=== PATIENT | female | born 1985 | race Caucasian/White ===

== ENCOUNTER 2017-10-28 16:50 | Emergency (ER) | payer OTHER ==
[~2017-10-28] VITALS: Ht 170.2 cm; Wt 56.7 kg
[2017-10-28] MEDS ORDERED: NKM (17:12)
[2017-10-28 17:14] VITALS: BP 142/91
--- NOTE | 2017-10-28 17:23 | Emergency Room Report ---
History of Present Illness General Chief Complaint: General Complaint Source: Patient Present Illness HPI 32-year-old female presents to the emergency department complaining of 9 out of 10 in severity epigastric pain that radiates up and across the chest since this morning. Patient reports that she took some aspirin earlier today and had some mild relief however her symptoms return and this prompted her to come to the ER. Patient reports recent febrile illness 2 days ago she denies appreciable cough she states that she was seen earlier today at an urgent care and was prescribed albuterol and antibiotics however patient feels that nothing was done because she doesn't believe that she has URI. Patient reports some nausea she denies vomiting she denies constipation or diarrhea. Patient reports history once in the past of acid reflux but has not had symptoms since. Patient states that her pain is not changed with position. She denies shortness of breath. Denies recent travel or ill contacts. Patient states she has attempted to take Tums with no relief. Patient states on occasion pain also radiated to her left shoulder blade. She denies . Denies CP, Palpitations, LOC, AMS, dizziness, Changes in Vision, Sensation, paresthesias, or a sudden severe headache. Allergies: Coded Allergies: No Known Allergies (Unverified , 10/28/17) Patient History Past Medical History: see triage record Past Surgical History: none Pertinent Family History: none Now: No Immunizations: UTD Reviewed Nursing Documentation: PMH: Agreed; PSxH: Agreed Nursing Documentation-PMH Past Medical History: No Stated History Review of Systems All Other Systems: negative except mentioned in HPI Physical Exam Vital Signs Date Time Temp Pulse Resp B/P (MAP) Pulse Ox O2 Delivery O2 Flow Rate FiO2 10/28/17 17:05 97.9 92 18 142/91 96 Room Air 97.9 Medical Decision Making PA Attestation Dr. Wheat is my supervising Physician whom patient management has been discussed with. Diagnostic Impression: Primary Impression: Nonspecific chest pain Additional Impression: Epigastric pain ER Course 32-year-old female presents to the emergency department complaining of 9 out of 10 in severity epigastric pain that radiates up and across the chest since this morning. Patient reports that she took some aspirin earlier today and had some mild relief however her symptoms return and this prompted her to come to the ER. Patient reports recent febrile illness 2 days ago she denies appreciable cough she states that she was seen earlier today at an urgent care and was prescribed albuterol and antibiotics however patient feels that nothing was done because she doesn't believe that she has URI. Patient reports some nausea she denies vomiting she denies constipation or diarrhea. Patient reports history once in the past of acid reflux but has not had symptoms since. Patient states that her pain is not changed with position. She denies shortness of breath. Denies recent travel or ill contacts. Patient states she has attempted to take Tums with no relief. Patient states on occasion pain also radiated to her left shoulder blade. She denies . Denies CP, Palpitations, LOC, AMS, dizziness, Changes in Vision, Sensation, paresthesias, or a sudden severe headache. Ddx considered but are not limited to GERD, Pneumomediastinum, pericarditis, OK , pneumonia, contusion, costochondritis, PE, ACS, Shoulder strain, Chest wall contusion. aortic dissection. Vital signs: are WNL, pt. is afebrile H&PE are most consistent with [ ] ORDERS: - EKG: NSR no evidence of pericarditis CXR: - Unremarkable ED INTERVENTIONS: - Gi Cocktail -Toradol IM -Prevacid. pt. reports symptoms have improved. -I do not identify an emergent condition at this time. With current presentation , pt. is stable for close outpatient follow up and conservative treatment. D/ w pt. to return promptly to ED with worsening or new symptoms.- Pt. (and or responsible libertarian) verbalizes' understanding and agreement with proposed treatment plan.proposed treatment plan. DISCHARGE: At this time pt. is stable for d/c to home. Will provide printed patient care instructions, and any necessary prescriptions. Care plan and follow up instructions have been discussed with the patient prior to discharge. EKG Diagnostic Results EP Interpretation: Dr. Wheat Rate: normal - 70 bpm Rhythm: NSR ST Segments: no acute changes ASA given to the pt in ED: No PA Scribe Text This Interpretation was scribed by EAGLE Alejandre. Chest X-Ray Diagnostic Results Chest X-Ray Diagnostic Results : Chest X-Ray Ordered: Yes # of Views/Limited/Complete: 1 View Indication: Chest Pain EP Interpretation: Yes PA Xray: Interpretation reviewed, by supervising MD, and agrees with findings. Interpretation: no consolidation, no effusion, no pneumothorax, no acute cardiopulmonary disease Impression: No acute disease Electronically Signed by: Patsy Alejandre PA-C Last Vital Signs Date Time Temp Pulse Resp B/P (MAP) Pulse Ox O2 Delivery O2 Flow Rate FiO2 10/28/17 17:05 97.9 92 18 142/91 96 Room Air 97.9 Disposition: HOME, SELF-CARE Condition: Stable Scripts Lansoprazole* (PREVACID*) 15 Mg Tab.rap.dr 15 MG ORAL DAILY, #14 TAB Prov: Patsy Alejandre 10/28/17 Hydrocodone Bit/Acetaminophen 5-325* (NORCO 5-325*) 1 Each Tablet 1 TAB ORAL Q6H PRN for For Pain, #6 TAB 0 Refills Prov: Patsy Alejandre 10/28/17 Simethicone (Simethicone) 80 Mg Tab.chew 80 MG PO BID, #30 TAB Prov: Patsy Alejandre 10/28/17 Patient Instructions: Nonspecific Chest Pain, [id number] Additional Instructions: Take medications as directed. Follow up with a Primary Care Provider in 3-5 days, For GI Specialist referral. Return sooner to ED if new symptoms occur, or current symptoms become worse. - Please note that this Emergency Department Report was dictated using [employer] worker technology software, occasionally this can lead to erroneous entry secondary to interpretation by the dictation equipment. Patsy Alejandre October 28, 2017 17:23
[2017-10-28] MEDS ORDERED: Lidocaine 2% Visc 15ml soln ORAL ONE (17:45)
[2017-10-28] MEDS ORDERED: Mylanta II UD 30ml ORAL ONE (17:45)
[2017-10-28] MEDS ORDERED: Ketorolac 60mg Inj IM ONE (18:30)
[2017-10-28] MEDS ORDERED: PREVACID15 M2 ORAL (19:02)
[2017-10-28] MEDS ORDERED: NORCO 5-325 TA1 EACH ORAL (19:02)
[2017-10-28] MEDS ORDERED: SIMETHICONE80 M1 PO (19:02)
[2017-10-28 19:14] VITALS: BP 134/84
--- NOTE | 2017-10-29 09:35 | Diagnostic Imaging Report ---
Indication: Chest pain Technique: One view of the chest Comparison: none Findings: Lungs and pleural spaces are clear. Heart size is normal. Impression: No acute process
--- NOTE | 2017-10-29 14:35 | Cardiology Report ---
APPROVED REPORT EKG Measurement Heart [id number] [id number] Normal sinus rhythm Rightward axis Borderline ECG
== END 2017-10-28 19:25 | disposition home or self-care (01) ==
LOC: EMR 17:50
DX: R07.9 Chest pain, unspecified (principal); R10.13 Epigastric pain
CPT/HCPCS: 71045; 93005; 96372; 99284

== ENCOUNTER 2018-02-21 13:21 | Emergency (ER) | payer OTHER ==
[~2018-02-21] VITALS: Ht 170.2 cm; Wt 56.7 kg
[~2018-02-21 13:21] MED LIST: NKM; NORCO 5-325 TA1 EACH ORAL; PREVACID15 M2 ORAL; SIMETHICONE80 M1 PO
[2018-02-21 13:47] VITALS: BP 129/83
[2018-02-21] MEDS ORDERED: PROMETHAZI6.25 MG/1 ORAL (13:57)
[2018-02-21] MEDS ORDERED: ROBAXIN500 MG PO (13:57)
[2018-02-21] MEDS ORDERED: TYLENOL EXTRA500 MG ORAL (13:57)
--- NOTE | 2018-02-21 13:58 | Emergency Room Report ---
History of Present Illness General Chief Complaint: Upper Respiratory Illness Source: Patient Present Illness HPI 32-year-old female patient presents ER complaining of cough and no sickness for the past day. Reports cough with white sputum. Denies hemoptysis. Denies taking control, recent travel or history of cancer. Denies chest pain, shortness of breath. Denies history of heart attack or asthma. also complaining of neck stiffness during this time. Reports pain worse with neck leaning back and [id number] movement. Denies injury or trauma. Reports history of neck symptoms in the past. reports that she came to the ER today because a friend of her stated that any time she has neck stiffness and is feeling sick she should go to the ER. Reports does not like taking medications for relief of symptoms, has not taken any pain medication. declines pain medication. Reports up to date on vaccinations. denies hematuria. denies sore throat. denies recent travel. Denies calf pain. Denies headache, vertigo, or vision changes. Allergies: Coded Allergies: No Known Allergies (Unverified , 10/28/17) Patient History Past Medical History: see triage record Last Menstrual Period: 02/09/2018 Reviewed Nursing Documentation: PMH: Agreed; PSxH: Agreed Nursing Documentation-PMH Past Medical History: No Stated History Hx Cardiac Problems: No Hx Hypertension: No Hx Pacemaker: No Hx Asthma: No Hx COPD: No Hx Diabetes: No Hx Cancer: No Hx Gastrointestinal Problems: Yes History Of Psychiatric Problem: No Hx Neurological Problems: No Hx Cerebrovascular Accident: No Hx Seizures: No Review of Systems All Other Systems: negative except mentioned in HPI Physical Exam Vital Signs Date Time Temp Pulse Resp B/P (MAP) Pulse Ox O2 Delivery O2 Flow Rate FiO2 02/21/18 13:29 98.5 74 16 129/83 100 Room Air 98.4 Sp02 EP Interpretation: reviewed, normal General Appearance: well appearing, no apparent distress, alert, GCS 15, non- toxic Head: normocephalic, atraumatic ENT: hearing grossly normal, normal pharynx, no angioedema, normal voice, TMs + canals normal, uvula midline, moist mucus membranes Neck: full range of motion, no meningismus, no bony tend - no spinous process depression or bony tenderness, tender lateral - left Respiratory: lungs clear, normal breath sounds, no rhonchi, no respiratory distress, no accessory muscle use, no wheezing, speaking full sentences Cardiovascular #1: regular rate, rhythm, no edema Genitourinary: no CVA tenderness Musculoskeletal: back normal, digits/nails normal, gait/station normal, normal range of motion, non-tender, no calf tenderness, Yahaira's Sign negative Neurologic: alert, oriented x3, responsive, motor strength/tone normal, sensory intact, other - negative Brudzinski, negative Kernig Psychiatric: mood/affect normal Skin: no rash Lymphatic: no adenopathy Medical Decision Making PA Attestation Dr. Romero is my supervising Physician whom patient management has been discussed with. Diagnostic Impression: Primary Impression: Neck stiffness Additional Impression: Upper respiratory infection ER Course Pt. presents to the ED c/o cough and neck stiffness. Ddx considered but are not limited to fracture, sprain, strain, contusion, dislocation, URI, sinusitis, otitis media, pharyngitis. Negative Kernig, negative Brudzinski, low suspicion for meningitis. Patient afebrile, nontoxic appearing. Does not require labs at this time. no tachycardia, no calf swelling or pain, negative Homans sign, no periods of immobilization, no hemoptysis, does not take control medication, low suspicion for PE per Well's criteria. Vital signs: are WNL, pt. is afebrile ER COURSE patient declined pain medication. lungs clear to auscultation, no wheezes rhonchi Rayl, patient afebrile, low suspicion for pneumonia, does not require chest x-ray. nonerythematous TMs bilaterally, no pain with ear pulling, no signs of otitis externa or media. likely viral etiology of symptoms, provide with cough medication. Advised to drink plenty of fluids and symptomatic treatment. Denies recent injury or trauma, full range of motion, no bony depression or spinous process tenderness, low suspicion for fracture, does not require x-rays at this time. mild tenderness to palpation over left lateral neck, likely muscular pain, will provide muscle relaxant. Patient instructed on RICE method: rest, ice, compression, elevation. Patient instructed on rest, ice and heat. Contact information for orthopedic urgent care provided, follow-up with urgent care if unable to followup with primary care provider and get referral to graphics production specialist. Followup with primary care provider. Discuss referral to ortho/pain management/ PT as needed. Discuss further imaging with MRI/CT as needed. DISCHARGE: -Rx provided for Tylenol for pain - Rx provided for promethazine for cough symptoms -Rx provided for Methocarbamol. SE drowsiness, do not drink, drive, or operate heavy machinery while using. At this time pt. is stable for d/c to home. Patient is resting comfortably, in no acute distress, nontoxic appearing, talking without difficulty. Will provide printed patient care instructions, and any necessary prescriptions. Patient instructed to follow with primary care provider in 3 - 5 days and to request further follow-up as needed. Care plan and follow up instructions have been discussed with the patient prior to discharge. Take medications as directed. Patient questions asked and answered. Patient reports understanding and agreement to treatment plan. ER precautions given, patient instructed to return to ER immediately for any new or worsening of symptoms. - Please note that this Emergency Department Report was dictated using [employer] Power[employer]bed owner operator technology software, occasionally this can lead to erroneous entry secondary to interpretation by the dictation equipment. Last Vital Signs Date Time Temp Pulse Resp B/P (MAP) Pulse Ox O2 Delivery O2 Flow Rate FiO2 02/21/18 13:47 74 16 Room Air 02/21/18 13:47 98.4 129/83 100 98.4 Disposition: HOME, SELF-CARE Condition: Stable Scripts Acetaminophen* (TYLENOL EXTRA STRENGTH*) 500 Mg Tablet 500 MG ORAL Q8H PRN for Prn Headache/Temp > 101, #30 TAB 0 Refills Prov: Hari Mendes P.A. 02/21/18 Methocarbamol* (ROBAXIN*) 500 Mg Tablet 500 MG PO TID, #21 TAB 0 Refills Prov: Hari Mendes P.A. 02/21/18 Promethazine Hcl (PROMETHAZINE HCL*) 6.25 Mg/5 Ml Syrup 5 ML ORAL Q8H, #120 ML 0 Refills Prov: Hari Mendes P.A. 02/21/18 Patient Instructions: Cervical Sprain, [id number], Upper Respiratory Infection, Adult Additional Instructions: Patient instructed to follow up with primary care provider 3-5 and discuss further referral and imaging at that time. Patient instructed on rest, ice and heat. Do not take muscle relaxant prior to drinking, driving, or operating heavy machinery. Take medications as directed. Patient questions asked and answered. ER precautions given, patient instructed to return to ER immediately for any new or worsening of symptoms. Hari Mendes Feb 21, 2018 13:58
[2018-02-21 14:06] VITALS: BP 129/83
== END 2018-02-21 14:06 | disposition home or self-care (01) ==
LOC: EMR 13:54
DX: J06.9 Acute upper respiratory infection, unspecified (principal); M43.6 Torticollis; R05 Cough
CPT/HCPCS: 99282

== ENCOUNTER 2018-04-18 16:13 | Emergency (ER) | payer OTHER ==
[~2018-04-18] VITALS: Ht 170.2 cm; Wt 54.4 kg
[~2018-04-18 16:13] MED LIST changes: +PROMETHAZI6.25 MG/1 ORAL; +ROBAXIN500 MG PO; +TYLENOL EXTRA500 MG ORAL
[2018-04-18 16:28] VITALS: BP 136/78
--- NOTE | 2018-04-18 17:41 | Emergency Room Report ---
History of Present Illness General Chief Complaint: General Complaint Source: Patient Present Illness HPI 32-year-old female presents to the emergency department complaining of retained foreign body in the left thumb. Patient reports that she was pushing a thumbtack in a while when it slipped and punctured her left thumb. Patient reports that she attempted to remove it herself however she was unable to she states that there was "a flat head to the thumbtack "patient states she is up-to -date with her tetanus vaccination she denies taking blood thinning medications she reports some bleeding which has subsided. Patient denies pain but reports tenderness with palpation of the thumbtack. She states she is right-hand dominant. Denies numbness tingling or loss of sensation or gross motor movements of the extremity. Allergies: Coded Allergies: No Known Allergies (Unverified , 10/28/17) Patient History Past Medical History: see triage record Past Surgical History: none Pertinent Family History: none Last Menstrual Period: unknown Now: No Immunizations: UTD Reviewed Nursing Documentation: PMH: Agreed; PSxH: Agreed Nursing Documentation-PMH Hx Cardiac Problems: No Hx Hypertension: No Hx Pacemaker: No Hx Asthma: No Hx COPD: No Hx Diabetes: No Hx Cancer: No Hx Gastrointestinal Problems: Yes History Of Psychiatric Problem: No Hx Neurological Problems: No Hx Cerebrovascular Accident: No Hx Seizures: No Review of Systems All Other Systems: negative except mentioned in HPI Physical Exam Vital Signs Date Time Temp Pulse Resp B/P (MAP) Pulse Ox O2 Delivery O2 Flow Rate FiO2 04/18/18 16:22 98.4 78 14 136/78 99 Room Air Procedures Incision and Drainage Incision and Drainage : Consent: Verbal Site: [facility]- finger pad Blade Size: 11 I & D Procedure: betadine prep, sterile drapes applied, sterile dressing applied Wound Location: upper extremity - left thumb Wound's Depth, Shape: linear Wound Length (cm): 1 Wound Explored: foreign body removed - thumb tack removed after small incision less than 0.4cm Irrigated w/ Saline (ccs): 500 Anesthesia: 1% Lidocaine Volume Anesthetic (ccs): 1 Splint Applied?: No Sling Applied?: No Patient Tolerated: Well Complications: None Medical Decision Making PA Attestation Dr. Wheat is my supervising Physician whom patient management has been discussed with. Diagnostic Impression: Primary Impression: Foreign body (FB) in soft tissue Additional Impression: Puncture wound ER Course 32-year-old female presents to the emergency department complaining of retained foreign body in the left thumb. Patient reports that she was pushing a thumbtack in a while when it slipped and punctured her left thumb. Patient reports that she attempted to remove it herself however she was unable to she states that there was "a flat head to the thumbtack "patient states she is up-to -date with her tetanus vaccination she denies taking blood thinning medications she reports some bleeding which has subsided. Patient denies pain but reports tenderness with palpation of the thumbtack. She states she is right-hand dominant. Denies numbness tingling or loss of sensation or gross motor movements of the extremity. Ddx considered but are not limited to cellulitis, retained FB, cyst/abscess, puncture wound, laceration Vital signs: are WNL, pt. is afebrile H&PE are most consistent with retained FB in the ST of the left thumb. ORDERS: none required at this time, the diagnosis is clinical - - X-ray Left thumb - negative for fx, Dislocation, or significant soft tissue injury POSITIVE for metallic linear fb in the soft tissue of the thumb pad. ED INTERVENTIONS: - Incision and removal - Bacitracin is applied. - wound is dressed by CUT OFF SAW TENDER METAL: At this time pt. is stable for d/c to home. Will provide printed patient care instructions, and any necessary prescriptions. Care plan and follow up instructions have been discussed with the patient prior to discharge. Other X-Ray Diagnostic Results Other X-Ray Diagnostic Results : X-Ray ordered: Left hand # of Views/Limited Vs Complete: 3 View Indication: Pain EP Interpretation: Yes EAGLE Xray: Interpretation reviewed, by supervising MD, and agrees with findings. Interpretation: no dislocation, no soft tissue swelling, no fractures, other - POSITIVE for metallic linear fb in the soft tissue of the thumb pad. Impression: Other - abnormal Electronically Signed by: Patsy Alejandre PA-C Last Vital Signs Date Time Temp Pulse Resp B/P (MAP) Pulse Ox O2 Delivery O2 Flow Rate FiO2 04/18/18 16:28 98.4 67 14 136/78 99 Room Air Disposition: HOME, SELF-CARE Condition: Stable Scripts Bacitracin/Polymyxin B Sulfate (BACITRACIN-POLYMYXIN OINTMENT) 28.35 Gm Oint...g. 1 APPLIC TP BID, #28.3 GM Prov: Patsy Alejandre 04/18/18 Amoxicillin/Potassium Clav 875-125* (AUGMENTIN 875-125 TABLET*) 1 Each Tablet 1 TAB ORAL TWICE A DAY for 7 Days, #14 TAB Prov: Patsy Alejandre 04/18/18 Referrals: [facility],REFERRING (PCP) Departure Forms: Return to Work Return to Work Date: Apr 19, 2018 Other Restrictions: limited use of left thumb x 5 days Return to Full Activity: Apr 24, 2018 Patient Instructions: Puncture Wound, [id number], Sliver Removal, Care After Additional Instructions: Take medications as directed. Follow up with a Primary Care Provider in 3-5 days, even if your symptoms have resolved. --Please review list of primary care clinics, if you do not already have a primary care provider Return sooner to ED if new symptoms occur, or current symptoms become worse. - Please note that this Emergency Department Report was dictated using [employer] colorer technology software, occasionally this can lead to erroneous entry secondary to interpretation by the dictation equipment. Patsy Alejandre Apr 18, 2018 17:41
[2018-04-18] MEDS ORDERED: AUGMENTIN 875-1 EAC1 ORAL (17:42)
[2018-04-18] MEDS ORDERED: BACITRACIN-P28.35 GM TP (17:42)
[2018-04-18] MEDS: Bacitracin Oint UD TOPIC ONE (17:46)
[2018-04-18 17:51] VITALS: BP 136/78
--- NOTE | 2018-04-18 17:53 | Diagnostic Imaging Report ---
EXAM: XR Left Finger(s), 2 or More Views CLINICAL HISTORY: PAIN TECHNIQUE: Frontal, lateral and oblique views of finger(s) of the left hand. COMPARISON: No relevant prior studies available. FINDINGS: Bones/joints: No acute fracture. No dislocation. Soft tissues: 9 mm nail or other metallic foreign body within the palmar soft tissues of the distal left thumb. IMPRESSION: No fracture or dislocation
== END 2018-04-18 17:51 | disposition home or self-care (01) ==
LOC: EMR 17:19
DX: M79.5 Residual foreign body in soft tissue (principal); S61.042A Puncture wound with foreign body of left thumb without damage to nail, initial encounter; W22.8XXA Striking against or struck by other objects, initial encounter; Y92.9 Unspecified place or not applicable
CPT/HCPCS: 10060; 99283